=== PATIENT | male | born 1995 | race Two or more races ===

== ENCOUNTER 2018-06-29 14:08 | Emergency (ER) | payer OTHER, BC ==
[2018-06-29 15:34] VITALS: BP 126/61
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
== END 2018-06-29 16:53 | disposition home or self-care (01) ==
LOC: ER 14:08
DX: S16.1XXA Strain of muscle, fascia and tendon at neck level, initial encounter (principal); M25.522 Pain in left elbow; M54.2 Cervicalgia; M54.5 Low back pain; V49.40XA Driver injured in collision with unspecified motor vehicles in traffic accident, initial encounter
CPT/HCPCS: 99283

== ENCOUNTER 2020-08-15 10:05 | Emergency (ER) | payer OTHER, BC ==
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
[2020-08-15] MEDS ORDERED: OXYCODONE-ACETAMINOPHEN 5-325 MG TABLET PO ONE (11:24)
[2020-08-15] MEDS ORDERED: ONDANSETRON 4 MG TAB.RAPDIS PO ONE (11:24)
[2020-08-15 11:48] VITALS: BP 127/65
== END 2020-08-15 11:50 | disposition home or self-care (01) ==
LOC: ER 10:05
DX: S16.1XXA Strain of muscle, fascia and tendon at neck level, initial encounter (principal); S09.90XA Unspecified injury of head, initial encounter; S60.819A Abrasion of unspecified wrist, initial encounter; R51.9 Headache, unspecified; M25.512 Pain in left shoulder; M25.531 Pain in right wrist; M25.532 Pain in left wrist; V87.7XXA Person injured in collision between other specified motor vehicles (traffic), initial encounter; Z87.891 Personal history of nicotine dependence
CPT/HCPCS: 99285; 71046; 73110; 70450; 72125; S0119